=== PATIENT | male | born 1975 | race Caucasian/White ===

== ENCOUNTER 2017-04-23 10:03 | Emergency (ER) | payer OTHER ==
[2017-04-23] MEDS ORDERED: ACETAMINOPHEN TAB 500 MG TAB PO STA (10:23)
[2017-04-23] MEDS ORDERED: MORPHINE SULFATE 4 MG/ML SYRINGE IVP STA (10:23)
--- NOTE | 2017-04-23 10:34 | ED ---
Abdominal Pain HPI - General Chief Complaint: Abdominal Pain Stated Complaint: Flank pain Time Seen by Provider: 04/23/17 10:14 Source: patient Mode of arrival: ambulatory Limitations: no limitations - History of Present Illness Initial Comments: This is a 41-year-old male with no past medical history who presents emergency department for left-sided abdominal pain. He states it started yesterday and has gradually worsened. Nothing seems to make it any better however eating seems to make it worse. Denies any nausea or vomiting. No diarrhea or constipation associated with it. No fevers or chills. He states that today just got so bad that he was at work and decided he needed to be seen area he denies a history of kidney stones or any other intra-abdominal infections. No dysuria or hematuria. No other complaints. - Related Data Home Medications Medication Instructions Recorded Confirmed Cetirizine HCl [Zyrtec] 10 mg PO HS 04/23/17 04/23/17 Menthol [Biofreeze] 1 applic TOPICAL DAILY PRN 04/23/17 04/23/17 Previous Rx's Medication Instructions Recorded Ciprofloxacin HCl [Cipro] 500 mg PO Q12HR #14 tablet 04/23/17 HYDROcodone/APAP 5-325MG [[place] 1 - 2 tab PO Q6HR PRN #15 tab 04/23/17 5-325] metroNIDAZOLE [Flagyl] 500 mg PO TID #21 tab 04/23/17 Allergies Allergy/AdvReac Type Severity Reaction Status Date / Time amoxicillin Allergy Unknown Verified 04/23/17 10:24 Childhood Review of Systems ROS Statement: Those systems with pertinent positive or pertinent negative responses have been documented in the HPI. ROS Other: All systems not noted in ROS Statement are negative. Past Medical History Past Medical History: Hypertension Additional Past Medical History / Comment(s): gout History of Any Multi-Drug Resistant Organisms: None Reported Additional Past Surgical History / Comment(s): cyst removed on back Past Psychological History: No Psychological Hx Reported Smoking Status: Current every day smoker Past Alcohol Use History: Occasional Past Drug Use History: None Reported General Exam - General Exam Comments Initial Comments: Constitutional: Awake alert Appears comfortable Head: Normocephalic atraumatic Eyes: no conjunctival injection No scleral icterus EOMI Neck: No JVD Supple Heart: Regular rate rhythm normal S1-S2 no murmurs Lungs: Clear to auscultation bilaterally No wheezing No rales Abdomen: Soft nondistended tenderness to palpation along the left lower quadrant to left upper quadrant. No CVA tenderness or flank pain. Extremities: Non edematous DP pulses intact Radial pulses intact Neuro: A&Ox3 No focal neurologic deficits Psych: Appropriate mood and affect Limitations: no limitations Course Vital Signs 04/23/17 10:05 Temperature 100.1 F H Pulse Rate 98 Respiratory 20 Rate Blood Pressure 170/83 O2 Sat by Pulse 94 L Oximetry Medical Decision Making - Medical Decision Making Is a 41-year-old male who presents emergency department for left-sided abdominal pain. Computed tomography scan confirmed uncomplicated diverticulitis. The patient will be started on Cipro and Flagyl at home and given [place] for pain control. A told to take the next couple of days off of work. He needs to return if he has worsening pain. Otherwise needs follow-up with his primary doctor. All questions were answered. - Lab Data Result diagrams: 04/23/17 10:17 04/23/17 10:17 Lab Results 04/23/17 04/23/17 04/23/17 Range/Units 10:17 10:17 10:17 WBC 16.2 H (3.8-10.6) k/uL RBC 4.71 (4.30-5.90) m/uL Hgb 15.4 (13.0-17.5) gm/dL Hct 43.3 (39.0-53.0) % MCV 92.0 (80.0-100.0) fL MCH 32.7 (25.0-35.0) pg MCHC 35.6 (31.0-37.0) g/dL RDW 12.4 (11.5-15.5) % Plt Count 300 (150-450) k/uL Neutrophils % 79 % Lymphocytes % 12 % Monocytes % 6 % Eosinophils % 2 % Basophils % 0 % Neutrophils # 12.7 H (1.3-7.7) k/uL Lymphocytes # 2.0 (1.0-4.8) k/uL Monocytes # 1.0 (0-1.0) k/uL Eosinophils # 0.2 (0-0.7) k/uL Basophils # 0.1 (0-0.2) k/uL Sodium 141 (137-145) mmol/L Potassium 4.6 (3.5-5.1) mmol/L Chloride 102 (98-107) mmol/L Carbon Dioxide 26 (22-30) mmol/L Anion Gap 13 mmol/L BUN 12 (9-20) mg/dL Creatinine 0.69 (0.66-1.25) mg/dL Est GFR (MDRD) Af Amer >60 (>60 ml/min/1.73 sqM) Est GFR (MDRD) Non-Af >60 (>60 ml/min/1.73 sqM) Glucose 104 H (74-99) mg/dL Calcium 10.0 (8.4-10.2) mg/dL Total Bilirubin 1.0 (0.2-1.3) mg/dL AST 23 (17-59) U/L ALT 39 (21-72) U/L Alkaline Phosphatase 59 (38-126) U/L Total Protein 7.8 (6.3-8.2) g/dL Albumin 4.7 (3.5-5.0) g/dL Amylase 34 (30-110) U/L Lipase 59 (23-300) U/L Urine Color Yellow Urine Appearance Clear (Clear) Urine pH 6.0 (5.0-8.0) Ur Specific [place] 1.020 (1.001-1.035) Urine Protein Trace H (Negative) Urine Glucose (UA) Negative (Negative) Urine Ketones Negative (Negative) Urine Blood Negative (Negative) Urine Nitrite Negative (Negative) Urine Bilirubin Negative (Negative) Urine Urobilinogen <2.0 (<2.0) mg/dL Ur Leukocyte Esterase Negative (Negative) Disposition Clinical Impression: Diverticulitis Disposition: HOME SELF-CARE Condition: Stable Instructions: Diverticulitis (ED) Prescriptions: Ciprofloxacin HCl [Cipro] 500 mg PO Q12HR #14 tablet HYDROcodone/APAP 5-325MG [[place] 5-325] 1 - 2 tab PO Q6HR PRN #15 tab PRN Reason: Pain metroNIDAZOLE [Flagyl] 500 mg PO TID #21 tab Referrals: Tamanna Mejia MD [Primary Care Provider] - 1-2 days
[2017-04-23 10:37] LABS: Appearance,Urine Clear (Clear); Bilirubin,Urine Negative (Negative); Glucose,Urine (UA) Negative (Negative); Ketones,Urine Negative (Negative); Leukocyte Esterase,Urine Negative (Negative); Nitrite,Urine Negative (Negative); Protein,Urine Trace (Negative); UA Billing (MACRO vs. MICRO) CHEM; Urobilinogen,Urine <2.0 mg/dL (<2.0)
[2017-04-23 10:41] LABS: Basophils # (A) 0.1 k/uL (0-0.2); Basophils % (A) 0 %; CH 31.8; CHCM 34.6; Eosinophils # (A) 0.2 k/uL (0-0.7); Eosinophils % (A) 2 %; HCT 43.3 % (39.0-53.0); HDW 2.38; HGB 15.4 gm/dL (13.0-17.5); Luc # (Auto) 0.24; Luc % (Auto) 2; Lymphocytes % (A) 12 %; MCH 32.7 pg (25.0-35.0); MCHC 35.6 g/dL (31.0-37.0); Mean Platelet Volume 6.7; Monocytes % (A) 6 %; Neutrophils # (A) 12.7 k/uL (1.3-7.7); Neutrophils % (A) 79 %; RBC 4.71 m/uL (4.30-5.90); RDW 12.4 % (11.5-15.5); WBC 16.2 k/uL (3.8-10.6); WBC (Perox) 17.52
[2017-04-23 10:47] LABS: ALT 39 U/L (21-72); AST 23 U/L (17-59); Alkaline Phosphatase 59 U/L (38-126); Amylase 34 U/L (30-110); Anion Gap 13 mmol/L; Blood Urea Nitrogen 12 mg/dL (9-20); Carbon Dioxide 26 mmol/L (22-30); Chloride 102 mmol/L (98-107); Glucose 104 mg/dL (74-99); Non-African American GFR(MDRD) >60 (>60 ml/min/1.73 sqM); Potassium 4.6 mmol/L (3.5-5.1); Sodium 141 mmol/L (137-145); Total Protein 7.8 g/dL (6.3-8.2)
--- NOTE | 2017-04-23 11:14 | CT ---
EXAMINATION TYPE: CT abdomen pelvis wo con DATE OF EXAM: 04/23/2017 COMPARISON: NONE INDICATION: LLQ pain, flank pain DLP: 1197 mGycm, Automated exposure control for dose reduction was used. CONTRAST: mL of . Study performed without Oral Contrast TECHNIQUE: Axial images were obtained from above the diaphragm to the pubic rami in the axial plane a t 5 mm thick sections. Reconstructed images are reviewed on the computer in the coronal plane. FINDINGS: Limited CT sections are obtained the lung bases. There is a calcification at the posterior lateral l eft lung base measuring 0.6 cm. Series 4 image 8. A 0.5 cm nodules in the lateral right lung base. Se adia [address] ABDOMEN: Liver: Normal Spleen: Normal Pancreas: Normal Adrenal glands: The adrenal glands are normal. Gallbladder: Normal Kidneys: No masses are evident. No hydronephrosis is present. No cysts are present. No renal stone s are evident. Aorta: Normal Inferior vena cava: Normal. CT PELVIS: Some mild inflammatory changes adjacent to a diverticulum in the left paracolic gutter. Series 3 imag e 50. Mild diverticulitis is present at this level. Loops of bowel without contrast otherwise appear within normal limits. Appendix: Not visualized Urinary bladder: Normal. Genitourinary structures: Prostate contains calcification Osseous structures: No suspicious lytic or sclerotic lesions. Moderately advanced degenerative change s are at the bilateral hips. IMPRESSIONS: 1. Mild acute diverticulitis descending colon
[2017-04-23 11:39] VITALS: BP 132/68; PULSE 64; RESP 18; TEMP 98.6
== END 2017-04-23 11:37 | disposition home or self-care (01) ==
LOC: EC 10:03
DX: K57.92 Diverticulitis of intestine, part unspecified, without perforation or abscess without bleeding (principal); F17.200 Nicotine dependence, unspecified, uncomplicated; Z79.899 Other long term (current) drug therapy; Z88.0 Allergy status to penicillin
CPT/HCPCS: 36415; 80053; 82150; 83690; 85025; 81003; 74176; 99284; 96374; J2270

== ENCOUNTER 2018-07-03 06:26 | Emergency (ER) | payer OTHER ==
--- NOTE | 2018-07-03 07:19 | ED ---
General Adult HPI - General Chief complaint: ENT Stated complaint: ear pain Source: patient Mode of arrival: ambulatory Limitations: no limitations - History of Present Illness Initial comments: Dictation was produced using Tag[employer] dictation software. please excuse any grammatical, word or spelling errors. Chief Complaint: 43-year-old male with past medical history of hypertension and gout presents with right ear pain. History of Present Illness: She states that he has been having right ear fullness and right ear pain for several days. She states that he has had difficulties with otitis media as a child. He wears frequent earplugs for work. Patient states that his symptoms are severe from him to come to the emergency department. Patient denies any constitutional symptoms. Denies any headache. Denies any recent URI symptoms. He does have a history of ALLERGIES. The ROS documented in this emergency department record has been reviewed and confirmed by me. Those systems with pertinent positive or negative responses have been documented in the HPI. All other systems are other negative and/or noncontributory. - Related Data Home Medications Medication Instructions Recorded Confirmed Cetirizine HCl [Zyrtec] 10 mg PO HS 04/23/17 04/23/17 Menthol [Biofreeze] 1 applic TOPICAL DAILY PRN 04/23/17 04/23/17 Previous Rx's Medication Instructions Recorded Ciprofloxacin HCl [Cipro] 500 mg PO Q12HR #14 tablet 04/23/17 HYDROcodone/APAP 5-325MG [[place] 1 - 2 tab PO Q6HR PRN #15 tab 04/23/17 5-325] metroNIDAZOLE [Flagyl] 500 mg PO TID #21 tab 04/23/17 Azithromycin [Zithromax Z-pack] 0 mg PO DIRECTED #6 tab 07/03/18 traMADol HCL/ACETAMINOPHEN 1 tab PO Q6HR PRN 3 Days #6 tab 07/03/18 [Ultracet 37.5-325] Allergies Allergy/AdvReac Type Severity Reaction Status Date / Time amoxicillin Allergy Unknown Verified 07/03/18 06:34 Childhood Review of Systems ROS Statement: Those systems with pertinent positive or pertinent negative responses have been documented in the HPI. ROS Other: All systems not noted in ROS Statement are negative. Past Medical History Past Medical History: Hypertension Additional Past Medical History / Comment(s): gout History of Any Multi-Drug Resistant Organisms: None Reported Additional Past Surgical History / Comment(s): cyst removed on back Past Psychological History: Anxiety Smoking Status: Current every day smoker Past Alcohol Use History: Occasional Past Drug Use History: None Reported General Exam - General Exam Comments Initial Comments: PHYSICAL EXAM: General Impression: Alert and oriented x3, not in acute distress HEENT: Normocephalic atraumatic, extra-ocular movements intact, pupils equal and reactive to light bilaterally, mucous membranes moist, effusion to the right posterior TM with bulging TM, no tenderness with manipulation of the outer ear Cardiovascular: Heart regular rate and rhythm, S1&S2 audible, no murmurs, rubs or gallops Chest: Lungs clear to auscultation bilaterally, no rhonchi, no wheeze, no rales Abdomen: Bowel sounds present, abdomen soft, non-tender, non-distended, no organomegaly Musculoskeletal: Pulses present and equal in all extremities, no peripheral edema Motor: Power 5/5 bilaterally, no focal deficits noted Neurological: CN II-XII grossly intact, no focal motor or sensory deficits noted Skin: Intact with no visualized rashes Psych: Normal affect and mood Limitations: no limitations Course Vital Signs 07/03/18 06:30 Temperature 98.3 F Pulse Rate 88 Respiratory 17 Rate Blood Pressure 129/80 O2 Sat by Pulse 95 Oximetry Medical Decision Making - Medical Decision Making ED course: 43-year-old male with clinical presentation consistent with acute otitis media. Vital signs upon arrival are within acceptable limits. No clinical suspicion of mastoiditis given that patient does not have any pain over the mastoid region. Patient be discharged with prescription for antibiotics. Still to follow-up with primary care physician for outpatient follow-up of ear complaints. Disposition Clinical Impression: Ear pain, right Disposition: HOME SELF-CARE Condition: Good Instructions: Earache (ED) Prescriptions: Azithromycin [Zithromax Z-pack] 0 mg PO DIRECTED #6 tab traMADol HCL/ACETAMINOPHEN [[place] 37.5-325] 1 tab PO Q6HR PRN 3 Days #6 tab PRN Reason: Pain Is patient prescribed a controlled substance at d/c from ED?: Yes If prescribed controlled substance>3 days was MAPS reviewed?: Prescribed <3 Days Referrals: Tamanna Mejia MD [Primary Care Provider] - 1-2 days Time of Disposition: 07:19
[2018-07-03 07:39] VITALS: BP 138/90; PULSE 78; RESP 16; TEMP 97.9
== END 2018-07-03 07:38 | disposition home or self-care (01) ==
LOC: EC 06:26
DX: H92.01 Otalgia, right ear (principal); F17.200 Nicotine dependence, unspecified, uncomplicated; Z79.899 Other long term (current) drug therapy; Z88.0 Allergy status to penicillin
CPT/HCPCS: 99282

== ENCOUNTER 2018-08-12 05:54 | Emergency (ER) | payer OTHER ==
[2018-08-12] MEDS ORDERED: predniSONE 20 MG TAB PO STA (06:30)
[2018-08-12] MEDS ORDERED: INDOMETHACIN 25 MG CAP PO STA (06:30)
[2018-08-12] MEDS ORDERED: COLCHICINE 0.6 MG EACH PO STA (06:30)
--- NOTE | 2018-08-12 06:36 | ED ---
Extremity Problem HPI - General Chief complaint: Extremity Problem,Nontraumatic Stated complaint: Gout Time Seen by Provider: 08/12/18 06:25 Source: patient, family Mode of arrival: wheelchair Limitations: no limitations - History of Present Illness Initial comments: 's patient is a 43-year-old man who presents with complaint of right ankle pain and swelling. He states that this is identical to his usual gout flares. Patient states that he is out of his usual medications that he takes, colchicine and indomethacin. Patient denies any new or atypical symptoms. He denies fever or chills. Patient states the pain is aching and burning. Constant. Pain is worse with attempting to walk weightbearing. Pains better if he puts his foot up and rested. MD Complaint: joint pain Onset/Timin -: days(s) Location: right History of Same: Yes Radiation: none Quality: burning, aching Consistency: constant Improves with: elevation Worsens with: weight bearing, walking, palpation Associated Symptoms: denies other symptoms - Related Data Home Medications Medication Instructions Recorded Confirmed Cetirizine HCl [Zyrtec] 10 mg PO HS 04/23/07/03/18 Previous Rx's Medication Instructions Recorded Azithromycin [Zithromax Z-pack] 0 mg PO DIRECTED #6 tab 07/03/18 traMADol HCL/ACETAMINOPHEN 1 tab PO Q6HR PRN 3 Days #6 tab 07/03/18 [Ultracet 37.5-325] Colchicine 0.6 mg PO Q1H PRN #12 tablet 08/12/18 Indomethacin [Indocin] 50 mg PO TID #6 capsule 08/12/18 predniSONE 60 mg PO DAILY #30 tab 08/12/18 Allergies Allergy/AdvReac Type Severity Reaction Status Date / Time amoxicillin Allergy Unknown Verified 08/12/18 06:03 Childhood soy Allergy Unknown Verified 08/12/18 06:03 Review of Systems ROS Statement: Those systems with pertinent positive or pertinent negative responses have been documented in the HPI. ROS Other: All systems not noted in ROS Statement are negative. Constitutional: Denies: fever, chills, weakness Respiratory: Denies: cough, dyspnea Cardiovascular: Denies: chest pain, palpitations, edema Gastrointestinal: Denies: abdominal pain Musculoskeletal: Reports: joint swelling, arthralgia Skin: Denies: rash Neurological: Denies: headache, weakness Past Medical History Past Medical History: Hypertension Additional Past Medical History / Comment(s): gout History of Any Multi-Drug Resistant Organisms: None Reported Additional Past Surgical History / Comment(s): cyst removed on back Past Psychological History: Anxiety Smoking Status: Current every day smoker Past Alcohol Use History: Occasional Past Drug Use History: None Reported General Exam Limitations: no limitations General appearance: alert, in no apparent distress, obese Head exam: Present: atraumatic, normocephalic Eye exam: Present: normal appearance. Absent: scleral icterus, conjunctival injection Respiratory exam: Present: normal lung sounds bilaterally. Absent: respiratory distress, wheezes, rales, rhonchi, stridor Cardiovascular Exam: Present: regular rate, normal rhythm, normal heart sounds. Absent: systolic murmur, diastolic murmur, rubs, gallop GI/Abdominal exam: Present: soft. Absent: distended, tenderness, guarding, rebound, mass Extremities exam: Present: tenderness, normal capillary refill. Absent: pedal edema, calf tenderness Neurological exam: Present: alert. Absent: motor sensory deficit Skin exam: Present: warm, dry, intact, erythema. Absent: rash Course Vital Signs 08/12/18 05:58 Temperature 98.4 F Pulse Rate 82 Respiratory 18 Rate Blood Pressure 162/84 O2 Sat by Pulse 97 Oximetry Disposition Clinical Impression: Gout Disposition: HOME SELF-CARE Condition: Fair Instructions: Gout (ED) Prescriptions: Colchicine 0.6 mg PO Q1H PRN #12 tablet PRN Reason: Pain Indomethacin [Indocin] 50 mg PO TID #6 capsule predniSONE 60 mg PO DAILY #30 tab Is patient prescribed a controlled substance at d/c from ED?: No Referrals: Tamanna Mejia MD [Primary Care Provider] - 1-2 days
[2018-08-12 07:21] VITALS: BP 133/80; PULSE 84; RESP 16; TEMP 97.9
== END 2018-08-12 07:21 | disposition home or self-care (01) ==
LOC: EC 05:54
DX: M10.9 Gout, unspecified (principal); F17.200 Nicotine dependence, unspecified, uncomplicated; Z88.0 Allergy status to penicillin; Z91.018 Allergy to other foods; Z79.899 Other long term (current) drug therapy
CPT/HCPCS: 99283; J7512

== ENCOUNTER → 2019-04-01 | Outpatient (CLI) | payer OTHER ==
--- NOTE | 2019-04-01 18:35 | PN ---
PROGRESS NOTE This is a 43-year-old male patient with severe [place], AHI of 84, maintained on CPAP at the pressure of 15. He lost his insurance for 3 years and he was unable to see me. Meanwhile he was using an AirFit nose mask. On today's evaluation he is still very compliant with his CPAP unit. His AHI is down to 0.8. He is averaging around 7.7 hours and his CPAP use for more than 4 hours is 28/30. Leak is 23 L/minute. The patient is requesting a new mask interface and he is interested in a full-face mask. Otherwise he is still doing well. His weight has been stable over the past 3 years and there is no recent weight gain. He takes Zyrtec for nasal congestion and allergies. No other complaints otherwise for now. REVIEW OF SYSTEMS: Fourteen-point review of systems was done. Positive findings are all mentioned above in the history of present illness. PHYSICAL EXAMINATION: VITAL SIGNS: BP is 151/82, pulse 76, respirations 16, temperature 98.2, saturation 97% on room air. Height is 5 feet 11 inches, weight 344. [place] score is 12. BMI is 47.9. GENERAL APPEARANCE: Calm, comfortable. HEAD: Atraumatic, normocephalic. NECK: Supple. Mallampati class IV. There is no goiter or neck masses. LUNGS: Diminished; otherwise clear. HEART: Heart sounds are regular rate and rhythm. Normal S1, S2. No S3, S4. No murmurs. ABDOMEN: Soft, nontender. No organomegaly. EXTREMITIES: No edema. No cyanosis or clubbing. NEUROLOGIC: Alert and oriented x3. No focal neurological deficits. PSYCHIATRIC: Negative for anxiety or depression. IMPRESSION: 1. Severe symptomatic obstructive sleep apnea with an apnea/hypopnea index of 84, currently on CPAP at the pressure of 15. 2. Hypersomnia, improved. The patient is well treated for now with an AHI of 0.8 while on treatment. 3. Obesity with a body mass index of 47.9. 4. Hypertension. 5. Chronic back pain. 6. Chronic hip pain. PLAN: 1. Continue CPAP therapy at a pressure of 15 cm of water. 2. Offer this patient a DreamWear [id number] full-face mask, medium size. 3. Encourage weight loss. 4. Treatment is successful. Renewed his supplies. See me back in a year's time, earlier if needed. MMODL / IJN: [id number] /
== END | disposition home or self-care (01) ==
LOC: SLEEP 16:37
PROVIDERS: ATTEND Internal Medicine Critical Care Medicine
DX: G47.33 Obstructive sleep apnea (adult) (pediatric) (principal); E66.9 Obesity, unspecified; I10 Essential (primary) hypertension; G89.29 Other chronic pain; M54.9 Dorsalgia, unspecified; M25.559 Pain in unspecified hip; Z68.42 Body mass index [BMI] 45.0-49.9, adult; Z99.89 Dependence on other enabling machines and devices

== ENCOUNTER → 2021-06-14 | Outpatient (CLI) | payer OTHER ==
--- NOTE | 2021-06-14 17:13 | PN ---
PROGRESS NOTE Kt is a 46-year-old male patient coming in for followup. This is an annual check regarding obstructive sleep apnea. His latest sleep apnea evaluation was done around 3 years ago. Over the past 3 years, the patient has gained at least 25 pounds. He underwent left hip replacement and his mobility was limited and along with Covid 19, he was and he gained significant amount of weight. He continues to be effectively treated with CPAP therapy. The patient has severe disease with an AHI of 84. The patient is currently on CPAP pressure of 15 cm of water. During his last evaluation in my office, I offered the patient two different masks and the patient was using a Dream Wear fullface mask under the nose and AirFit P10. He prefers the fullface mask and sometimes uses the nasal pillow depending on his degree of nasal congestion. In all stays, the patient has been effectively treated and based on a 30-day compliance data the patient has been using the CPAP machine every night without any interruption and she had she has achieved CPAP use of 100% achieving more than 4 hours 85-90 percent of the time. The patient has been averaging around 6.5 hours of CPAP use per night with a leak of 30 L/minutes around the mask and his AHI is down to 2.4, indicating successful treatment. No complaints. BP is noted to be elevated, and the patient is symptomatic and the patient is currently on losartan for blood pressure control. No headaches. No altered mental status. No hypersomnia or sleepiness. Hip pain is subsided following his hip replacement. REVIEW OF SYSTEMS: Fourteen-point review of system was done. Positive for weight gain. Despite all this, the patient has been treated effectively and the patient's [place] score currently is low at 3. No headaches. He has hip pain and he has undergone a left hip replacement. He is also having issues with nasal congestion for which he is taking Zyrtec. On the days when his nasal passages are quite patent and dry, he uses a nasal pillow. PHYSICAL EXAMINATION: BP is 174/82, pulse 94, respirations 18, temperature 98.7. Saturation 95% on room air. BMI 51.6, body weight is 370, height is 5 feet 11 inches. GENERAL APPEARANCE: Calm, comfortable. Head is atraumatic, normocephalic. NECK: Supple. There is no JVD. No goiter or neck masses. Mallampati class 4. LUNGS: Clear to auscultation. HEART: Heart sounds are regular rate and rhythm. Normal S1, S2. No S3, S4. No murmurs. ABDOMEN: Soft, nontender. No organomegaly. EXTREMITIES: No edema, no cyanosis or clubbing. NEUROLOGIC: Awake, alert. There is no focal neurological deficits. PSYCHIATRIC: Negative for anxiety or depression. IMPRESSION: 1. Obstructive sleep apnea, severe AHI of 84 currently on CPAP pressure of 15 cm of water. 2. Obesity, morbid with interval 25 pounds weight gain over the past 2 years. BMI is up to 51.6, body weight is up to 370. 3. Hypersomnia, improved while on CPAP therapy and the patient has been effectively treated. He remains extremely compliant. 4. Hypertension with elevated blood pressure. 5. Chronic environmental allergies with nasal congestion. 6. Chronic back and hip pain. The patient underwent a left hip replacement. PLAN: 1. Keep CPAP therapy at a pressure of 15. 2. Order a full-face mask thru [facility] and the patient will be given Air Fit F30I fullface mask. He was given a Nuance nasal pillow to use as a backup on days where he does not have any excessive nasal congestion. 3. Blood pressure management per medicine. 4. Sleep apneas have been effectively treated. 5. Encourage weight loss. 6. Implement good sleep hygiene measures. 7. See me back in a year's time in followup. Appropriate refills of prescription were given to the patient. MMODL / IJN: [id number] /
== END ==
LOC: SLEEP 13:21
PROVIDERS: ATTEND Internal Medicine Critical Care Medicine
DX: G47.33 Obstructive sleep apnea (adult) (pediatric) (principal); E66.01 Morbid (severe) obesity due to excess calories; I10 Essential (primary) hypertension; T78.49XD Other allergy, subsequent encounter; G89.29 Other chronic pain; M54.9 Dorsalgia, unspecified; M25.552 Pain in left hip; F17.200 Nicotine dependence, unspecified, uncomplicated; Z96.642 Presence of left artificial hip joint; Z68.43 Body mass index [BMI] 50.0-59.9, adult; Z99.89 Dependence on other enabling machines and devices; Z88.1 Allergy status to other antibiotic agents; Z91.018 Allergy to other foods

== ENCOUNTER → 2024-09-23 | Outpatient (CLI) | payer OTHER ==
[2024-09-23 16:01] VITALS: BP 159/98; PULSE 90; RESP 18; TEMP 98.3
--- NOTE | 2024-09-23 17:50 | P.SLEEP ---
History of Present Illness H&P Date: 09/23/24 This is a 49-year-old morbidly obese male known history of obstructive sleep apnea. The patient was diagnosed having DUDLEY many years back.His last evaluation with me was back in 2020. His original diagnosis was established back in 2015. At that time, the patient was being treated for severe symptomatic DUDLEY with an AHI of 84 and the patient was being treated with CPAP pressure of 15 cm of water. His treatment was successful back then. The patient was lost to follow- up. The patient was using his CPAP machine during this time. His machine is currently old and exceeded its motor life span and the patient is interested in updating his CPAP unit. Over the past years, the patient has lost weight. Noted back in 2020, the patient used to weigh around 370 pounds and currently is down to 355. He remains very compliant with CPAP therapy and based on a 30-day compliance evaluation was done on this patient from his current machine, the patient utilized the machine 29 out of 30 days and his compliancy for more than 4 hours at 28/30. He has been averaging around 8.6 hours of CPAP use per night and his AHI is down to 0.8. Leak is in the order of 30 L/min and the patient is using the AirFit P10 large size nasal pillows. No snoring as long as he is on CPAP therapy. Denies having any choking or gasping for air. No restlessness in lower extremities. He is going to bed around 11 PM waking up at 8 AM in the morning. Does not fall asleep while driving. 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 [facility] which has also helped him with weight loss. Nausea of any congestion heart failure. No reported atrial fibrillation. Review of Systems Constitutional: Reports weight loss Eyes: denies as per HPI, denies blurred vision, denies bulging eye, denies decreased vision, denies diplopia, denies discharge, denies dry eye, denies irritation, denies itching, denies pain, denies photophobia, denies loss of peripheral vision, denies loss of vision, denies tunnel vision/blind spots Ears: deny: decreased hearing, ear discharge, earache, tinnitus Ears, nose, mouth and throat: Reports as per HPI Breasts: absent: as per HPI, gynecomastia Cardiovascular: Reports as per HPI Respiratory: Reports sleep apnea, Reports snoring Gastrointestinal: Reports as per HPI Genitourinary: Reports as per HPI Musculoskeletal: Reports as per HPI Musculoskeletal: absent: ankle pain, ankle stiffness, ankle swelling, as per HPI, elbow pain, elbow stiffness, elbow swelling, foot pain, foot stiffness, foot swelling, hand pain, hand stiffness, hand swelling, hip pain, hip stiffness, hip swelling, knee pain, knee stiffness, knee swelling, shoulder pain, shoulder stiffness, shoulder swelling, wrist pain, wrist stiffness, wrist swelling Integumentary: Reports as per HPI Neurological: Reports as per HPI Psychiatric: Reports as per HPI Endocrine: Reports as per HPI Hematologic/Lymphatic: Reports as per HPI Allergic/Immunologic: Reports as per HPI Past Medical History Past Medical History: Hypertension, Sleep Apnea/CPAP/BIPAP Additional Past Medical History / Comment(s): gout History of Any Multi-Drug Resistant Organisms: None Reported Additional Past Surgical History / Comment(s): cyst removed on back Past Anesthesia/Blood Transfusion Reactions: No Reported Reaction Past Psychological History: Anxiety Smoking Status: Current every day smoker Past Alcohol Use History: Occasional Past Drug Use History: None Reported - Past Family History Father Family Medical History: Asthma, Diabetes Mellitus, GERD/Reflux, Hyperlipidemia Additional Family Medical History / Comment(s): restless legs, diabetes controlled, arthritis type not known Mother Family Medical History: Coronary Artery Disease (CAD), CVA/TIA Additional Family Medical History / Comment(s): arthritis type not known Brother(s) Family Medical History: CVA/TIA, Diabetes Mellitus, Sleep Apnea/CPAP/BIPAP Medications and Allergies Home Medications Medication Instructions Recorded Confirmed Type Cetirizine HCl [Zyrtec] 10 mg PO HS 04/23/17 09/23/24 History Colchicine 0.6 mg PO Q1H PRN #12 tablet 08/12/18 Rx Indomethacin [Indocin] 50 mg PO TID #6 capsule 08/12/18 09/23/24 Rx predniSONE 60 mg PO DAILY #30 tab 08/12/18 Rx Dulaglutide [Trulicity] 1.5 mg SQ WEEKLY 09/23/24 09/23/24 History Latanoprost [Latanoprost 0.005%] See Rx Instructions .ROUTE .COMPLEX 09/23/24 09/23/24 History Allergies Allergy/AdvReac Type Severity Reaction Status Date / Time amoxicillin Allergy Unknown Verified 08/12/18 07:14 Childhood soy Allergy Unknown Verified 08/12/18 07:14 Physical Exam Vitals: Vital Signs Temp Pulse Resp BP Pulse Ox 09/23/24 15:59 98.3 F 90 18 159/98 97 The patient appeared well nourished and normally developed. Vital signs as documented. Head exam is unremarkable. No scleral icterus or corneal arcus noted. Neck is without jugular venous distension, thyromegaly, or carotid bruits. Carotid upstrokes are brisk bilaterally. Mallampati class IV with significant crowding of posterior pharynx Lungs are clear to auscultation and percussion. Cardiac exam reveals the PMI to be normally sized and situated. Rhythm is regular. First and second heart sounds normal. No murmurs, rubs or gallops. Abdominal exam reveals normal bowel sounds, no masses, no organomegaly and no aortic enlargement. Extremities are nonedematous and both femoral and pedal pulses are normal. Examination of the skin revealed no evidence of significant rashes, suspicious appearing nevi or other concerning lesions. Neurologically, the patient is awake and alert and the patient does not have any focal neurological deficit. Cranial nerves are essentially intact. Assessment and Plan Plan: Severe symptomatic obstructive sleep apnea established back in 2015 and the patient has been successfully treated over the years on a CPAP pressure of 15 cm of water. Adequate compliancy. Excellent clinical response Chronic hypersomnia, improved while on CPAP therapy Morbid obesity with a BMI of 50.9 Diabetes mellitus type 2, currently on Trulicity Hyperlipidemia Osteoarthritis Plan I am going to order a newer generation CPAP unit for this patient. The patient will need a ResMed 11 which will be essentially set at the same pressure of 15 cm of water. Will provide him the same mask interface which is an AirFit P 10+ size nasal pillows. Encouraged further weight loss. The patient should be able to get his machine and see me back in 30 to 90 days for another compliance check. He has good sleep hygiene measures. He has maintained a regular sleep schedule. 30 to 90 days compliance with check will be done after obtaining his new CPAP unit. Meanwhile, the patient to be able to have his DOT certification renewed as the patient has been extremely compliant and his treatment has remained successful over the years and the patient has no major hypersomnia or sleepiness while on CPAP therapy. Sleep Note - Sleep Data ESS Total: 20 - Sleep Note Sleep Note: Temperature: 98.3 F Pulse Rate: 90 Respiratory Rate: 18 Blood Pressure: 159/98 SpO2: 97 Height: Weight: BMI: Neck Circumference: 22.2
== END ==
LOC: 3 N SLEEP 14:11
PROVIDERS: ATTEND Internal Medicine Critical Care Medicine
DX: G47.33 Obstructive sleep apnea (adult) (pediatric) (principal); E66.01 Morbid (severe) obesity due to excess calories; Z68.43 Body mass index [BMI] 50.0-59.9, adult; E11.9 Type 2 diabetes mellitus without complications; E78.5 Hyperlipidemia, unspecified; M19.90 Unspecified osteoarthritis, unspecified site; F17.210 Nicotine dependence, cigarettes, uncomplicated; Z88.1 Allergy status to other antibiotic agents; Z91.018 Allergy to other foods
CPT/HCPCS: 99211

== ENCOUNTER → 2025-05-08 | Outpatient (CLI) | payer OTHER | END | disposition home or self-care (01) | LOC: LABWHC1 15:54 | PROVIDERS: ATTEND Orthopaedic Surgery | DX: Z01.89 Encounter for other specified special examinations (principal); Z13.1 Encounter for screening for diabetes mellitus; K76.9 Liver disease, unspecified; Z22.322 Carrier or suspected carrier of Methicillin resistant Staphylococcus aureus | CPT/HCPCS: 87070 ==